=== PATIENT | female | born 1945 | race Caucasian/White ===

== ENCOUNTER 2018-12-07 11:35 | Emergency (ER) | payer OTHER ==
--- NOTE | 2018-12-07 11:39 | ED Physician Documentation ---
General Adult - HISTORIAN Historian: patient - HPI Stated Complaint: fall, head laceration Chief Complaint: General Adult Onset: minutes Timing: still present Severity: moderate Further Comments: yes (Pt is a 73 yo female [place], tripped over her dog. She sustained a laceration to her R forehead and has R shoulder pain. Pt did not lose consciousness. Tetanus is not utd.) - ROS CONST: no problems EYES/ENT: none CVS/RESP: none GI/: none MS/SKIN/LYMPH: other (R shoulder pain, R forehead laceration) - PAST HX Past History: other (Anxiety, Insomnia, Sjorgren's Syndrome, RA.) Surgeries/Procedures: cholecystectomy, hysterectomy, other (Gastric Bypass.) Allergies/Adverse Reactions: Allergies Allergy/AdvReac Type Severity Reaction Status Date / Time meperidine [From Demerol] Allergy Verified 12/07/18 11:43 Home Medications: Ambulatory Orders Medication Instructions Recorded Alprazolam [Niravam] 1 mg PO HS 12/07/18 Baclofen 10 mg PO TID 12/07/18 Celecoxib 200 mg PO BID 12/07/18 Cevimeline HCl [Evoxac] 30 mg PO TID 12/07/18 Linaclotide [Linzess] 290 mcg PO DAILY 12/07/18 Oxycodone HCl/Acetaminophen 2 tab PO Q6 PRN 12/07/18 [Oxycodone-Acetaminophen 10-325] Pantoprazole Sodium [Protonix] 40 mg PO 717 12/07/18 Quetiapine Fumarate 200 mg PO HS 12/07/18 Tolterodine Tartrate [Tolterodine 4 mg PO DAILY 12/07/18 Tartrate ER] Trazodone HCl 50 mg PO HS 12/07/18 - SOCIAL HX Smoking History: non-smoker Alcohol Use: occasionally Drug Use: none - FAMILY HX Family History: No - REVIEWED ASSESSMENTS Nursing Assessment Reviewed: Yes Vitals Reviewed: Yes Procedures Wound Location: head Wound Length: 2.5 cm Wound's Depth, Shape: superficial Wound Explored: clean Irrigated w/ Saline (ccs): 20 Betadine Prep?: No (Hibiclens prep) Anesthesia: Lidocaine w/ Epi Wound Debrided: minimal Wound Repaired With: sutures Suture Size/Type: 5:0, nylon Number of Sutures: 3 Layer Closure?: No Sterile Dressing Applied?: Yes Progress - Results/Orders Results/Orders: CT head: CT brain without IV contrast Clinical history: Injury Radiation dose DLP 1169 Mastoid air cells and visible sinuses are clear. No visible skull fractures. Slight right frontal scalp swelling. No bleeding or acute intracranial abnormalities. Mild degree of cortical atrophy. No midline shift, hydrocephalus or visible tumor mass. Impression: Slight right frontal scalp hematoma No visible skull fractures Mild cortical atrophy No bleeding or acute intracranial abnormalities X-ray R shoulder: Right shoulder 2 views Clinical history: Trauma There is an impacted fracture of the neck of the right humerus. Ossification of the right acromioclavicular joint. Right scapula is normal. Impression: Impacted fracture of the neck of the right humerus [place] (5/325) 2 tablets in ER. Tdap 0.5 ml IM in ER. D/c instructions. Apply topical antibiotic such as Neosporin, Bacitracin, or Triple Antibiotic, to sutured area twice daily for 5 days. Follow up with primary provider in 5 to 7 days for suture removal. Rx [place] (5/325). Take one or two every 6 hours as needed for moderate to severe pain. (Dispense 15) Wear sling. Follow up at [facility]. Tel. [phone]. General Adult Physical Exam - PHYSICAL EXAM GENERAL APPEARANCE: mild distress EENT: eye inspection normal, pharynx normal NECK: normal inspection, supple RESPIRATORY: no resp distress, chest non-tender CVS: reg rate & rhythm, heart sounds normal ABDOMEN: soft, no organomegaly BACK: normal inspection, no CVA tenderness SKIN: other (2.5 cm laceation, R forehead) EXTREMITIES: other (R shoulder tenderness; clavicle intact; no R wrist or R elbow pain) NEURO: oriented X3, motor nml, sensation nml Discharge Clincal Impression: Impacted fx R humeral neck Forehead laceration Qualifiers: Encounter type: initial encounter Qualified Code(s): S01.81XA - Laceration without foreign body of other part of head, initial encounter Referrals: Primary Doctor,No [Primary Care Provider] - Condition: Stable Disposition: 01 HOME, SELF-CARE Decision to Admit: NO Decision Time: 13:10
[2018-12-07] MEDS: LIDOCAINE HCL 1%/EPI. (1:100,000) MDV 20ML VIAL IJ ONE (12:08)
[2018-12-07] MEDS: DIPH,PERTUSS(ACELL),TET VAC/PF 0.5 ML DISP.SYRIN IM ONE (12:14)
[2018-12-07] MEDS: oxyCODONE/ACETAMINOPHEN 5/325 TABLET PO ONE (12:48)
--- NOTE | 2018-12-07 13:03 | Diagnostic Imaging Report ---
GILLES RIVAS [facility] [address] [facility] [address] [address] Report Submission Date: Dec 07, 2018 12:15:25 PM CDT Patient Study Name: AWAIS LEE Date: Dec 07, 2018 11:39:11 AM CDT Modality Type: DX Gender: F Description: SHOULDER 2 VIEWS OR MORE : 47 Institution: [facility] Physician: GILLES RIVAS Right shoulder 2 views Clinical history: Trauma There is an impacted fracture of the neck of the right humerus. Ossification of the right acromioclavicular joint. Right scapula is normal. Impression: Impacted fracture of the neck of the right humerus Electronically signed on Dec 07, 2018 12:15:25 PM CDT by: Obed CONWAY
--- NOTE | 2018-12-07 13:03 | Diagnostic Imaging Report ---
GILLES RIVAS [facility] [address] [facility] [address] [place], [place]. [address] Report Submission Date: Dec 07, 2018 12:18:16 PM CDT Patient Study Name: AWAIS LEE Date: Dec 07, 2018 11:51:59 AM CDT Modality Type: CT\SR Gender: F Description: CT BRAIN W/O CONTRAST : 47 Institution: [facility] Physician: GILLES RIVAS CT brain without IV contrast Clinical history: Injury Radiation dose DLP 1169 Mastoid air cells and visible sinuses are clear. No visible skull fractures. Slight right frontal scalp swelling. No bleeding or acute intracranial abnormalities. Mild degree of cortical atrophy. No midline shift, hydrocephalus or visible tumor mass. Impression: Slight right frontal scalp hematoma No visible skull fractures Mild cortical atrophy No bleeding or acute intracranial abnormalities Electronically signed on Dec 07, 2018 12:18:16 PM CDT by: Obed CONWAY
[2018-12-07 13:34] VITALS: BP 97/54
== END 2018-12-07 13:29 | disposition home or self-care (01) ==
LOC: ED 11:35
DX: S01.81XA Laceration without foreign body of other part of head, initial encounter (principal); S42.201A Unspecified fracture of upper end of right humerus, initial encounter for closed fracture; W01.0XXA Fall on same level from slipping, tripping and stumbling without subsequent striking against object, initial encounter; Y93.89 Activity, other specified; Y99.8 Other external cause status